=== PATIENT | female | born 1945 | race Caucasian/White ===

== ENCOUNTER 2018-07-03 12:37 | Outpatient (CLI) | payer MEDICARE, BC ==
[2018-07-03 13:33] LABS: Actual Bicarbonate (HCO3a) 31.2 mEq/L (22-28); Analyzer IN Cardio OR; Base Excess (BEa) 6.8 mEq/L (-2.0 to +3.0); CO2 Tension 43.9 mmHg (35.0-45.0); Calcium, Ionized 1.11 mmol/L (1.12-1.30); Carboxyhemoglobin (COHb) 0.8 gm% (0.0-3.0); O2 Tension (PaO2) 61.6 mmHg (> 70.0); Potassium - ABG Lab 3.52 mmol/L (3.70-5.30); pH, Arterial 7.47 (7.35-7.45)
[2018-07-03 13:35] LABS: ALV-art Gradient 33.255 (0-20); Puncture Site RR
== END 2018-07-03 12:38 | disposition home or self-care (01) ==
LOC: CP 12:37
PROVIDERS: ATTEND Internal Medicine Critical Care Medicine
DX: J44.9 Chronic obstructive pulmonary disease, unspecified (principal)
CPT/HCPCS: 82805; 94060; 94727; 94729